=== PATIENT | female | born 1935 | race African-American/Black ===

== ENCOUNTER 2016-10-15 16:42 | Observation (INO) | payer MEDICARE, OTHER ==
[~2016-10-15] VITALS: Ht 160 cm; Wt 45.4 kg
[2016-10-15 17:21] LABS: HEMOGLOBIN 9.4 gm/dl (12.3-15.3); RED BLOOD COUNT 3.54 M/UL (4.00-5.10); WHITE BLOOD COUNT 7.7 K/UL (4.5-11.0)
[2016-10-16 07:02] LABS: HEMOGLOBIN 9.2 gm/dl (12.3-15.3); RED BLOOD COUNT 3.48 M/UL (4.00-5.10); WHITE BLOOD COUNT 6.7 K/UL (4.5-11.0)
[2016-10-16] MEDS ORDERED: HYDROCHLOROTH12.5 M1 PO (10:37)
[2016-10-16] MEDS ORDERED: LIPITOR TAB 2020 MG PO (10:37)
[2016-10-16] MEDS ORDERED: TOPROL XL25 MG PO (10:39)
[2016-10-16] MEDS ORDERED: THEO-DUR 300 M300 MG PO (10:39)
[2016-10-17 05:12] LABS: ACINETOBACTER BAUMANNII Not Detected (Negative); CANDIDA ALBICANS Not Detected (Negative); CANDIDA KRUSEI Not Detected (Negative); CANDIDA TROPICALIS Not Detected (Negative); ENTEROCOCCUS Not Detected (Negative); ESCHERICHIA COLI Not Detected (Negative); HAEMOPHILUS INFLUENZAE Not Detected (Negative); KLEBSIELLA OXYTOCA Not Detected (Negative); KLEBSIELLA PNEUMONIAE Not Detected (Negative); KPC-CARBAPENEM-RESISTANCE GENE Not Detected (Negative); PROTEUS Not Detected (Negative); PSEUDOMONAS AERUGINOSA Not Detected (Negative); SERRATIA MARCESANS Not Detected (Negative); STAPHYLOCOCCUS AUREUS Not Detected (Negative); STREP AGALACTIAE (GROUP B) Not Detected (Negative); STREP PYOGENES (GROUP A) Not Detected (Negative); STREPTOCOCCUS Not Detected (Negative); mecA (METHICILLIN RESIST GENE Not Detected (Negative); vanA/B (VANCOMYCIN RESIST GENE Not Detected (Negative)
[2016-10-17 05:55] LABS: STAPHYLOCOCCUS DETECTED (Negative)
[2016-10-17] MEDS ORDERED: LEVAQUIN500 MG PO (15:07)
[2016-10-17] MEDS ORDERED: AZITHROMYCIN250 MG PO (15:08)
[2016-10-17] MEDS ORDERED: DULERA 100 MCG8.8 GM INH (15:08)
[2016-10-17] MEDS ORDERED: FERROUS SULFAT325 MG PO (15:09)
[2016-10-17] MEDS ORDERED: MECLIZINE HCL25 MG PO (15:10)
[2016-10-17] MEDS ORDERED: PROVENTIL HFA 61 INH INH (15:11)
[2016-10-17] MEDS ORDERED: MEDROL4 MG PO (15:20)
== END 2016-10-17 13:05 | disposition left against medical advice (07) ==
LOC: ER1 16:42 → ZEROF 18:43 → MED SURG 4 18:43
PROVIDERS: Emergency Medicine; ADMIT Emergency Medicine
DX: J20.9 Acute bronchitis, unspecified (principal); J18.9 Pneumonia, unspecified organism; D50.9 Iron deficiency anemia, unspecified; E78.5 Hyperlipidemia, unspecified; E87.6 Hypokalemia; I11.9 Hypertensive heart disease without heart failure; J45.909 Unspecified asthma, uncomplicated; H81.10 Benign paroxysmal vertigo, unspecified ear; M10.9 Gout, unspecified; R26.9 Unspecified abnormalities of gait and mobility; I25.10 Atherosclerotic heart disease of native coronary artery without angina pectoris; E07.9 Disorder of thyroid, unspecified; Z95.1 Presence of aortocoronary bypass graft; Z86.711 Personal history of pulmonary embolism; Z79.899 Other long term (current) drug therapy
CPT/HCPCS: 36415; 70450; 71020; 80053; 82607; 82728; 82746; 83540; 83550; 83735; 84132; 84466; 84484; 85025; 87040; 87077; 87150; 87186; 93005; 94664; 96374; 97116; 97535; 99285; G0378; J0360; J0696; J1650; J1956; J7030; J7050; J7509

== ENCOUNTER 2020-09-27 17:11 | Emergency (ER) | payer MEDICARE, OTHER ==
[~2020-09-27 17:11] MED LIST: ANORO ELLIPTA1 EACH INH; ASPIRIN EC81 MG PO; ATORVASTATIN CA20 MG PO; AZITHROMYCIN250 MG PO; COLACE100 MG PO; DULERA 100 MCG8.8 GM INH; FEOSOL325 MG PO; FEROSUL325 MG PO; FERROUS SULFAT325 MG PO; FLAGYL500 MG PO; HYDRALAZINE HCL10 MG PO; HYDRALAZINE HCL25 MG PO; HYDRALAZINE HCL50 MG PO; HYDROCHLOROTH12.5 M1 PO; LEVAQUIN500 MG PO; LEVAQUIN750 MG PO; LIPITOR TAB 2020 MG PO; LOPRESSOR 25 MG25 MG PO; MECLIZINE HCL25 MG PO; MEDROL4 MG PO; NORVASC 5 MG TAB5 MG PO; OMNICEF 300 MG300 MG PO; PANTOPRAZOLE SO40 MG PO; PROVENTIL HFA 61 INH INH; SYNTHROID 50 M50 MCG PO; THEO-DUR 300 M300 MG PO; TOPROL XL25 MG PO; TYLENOL 325MG325 MG PO; VITAMIN D250000 UNIT PO; ZOFRAN ODT 4 MG4 MG SL
[2020-09-27 18:57] LABS: HEMOGLOBIN 11.2 gm/dl (12.3-15.3); RED BLOOD COUNT 3.81 M/UL (4.00-5.10); WHITE BLOOD COUNT 7.7 K/UL (4.5-11.0)
[2020-09-27 19:18] LABS: BUN/CREATININE RATIO 20 (0-10)
[2020-09-27] MEDS ORDERED: CEFPODOXIME PR200 MG PO (22:06)
[2020-09-27] MEDS ORDERED: STOOL SOFT50 MG/5 ML PO (22:06)
== END 2020-09-27 22:51 | disposition home or self-care (01) ==
LOC: ER1 17:11
PROVIDERS: Student in an Organized Health Care Education/Training Program
DX: N39.0 Urinary tract infection, site not specified (principal); K59.00 Constipation, unspecified; N20.0 Calculus of kidney; I12.9 Hypertensive chronic kidney disease with stage 1 through stage 4 chronic kidney disease, or unspecified chronic kidney disease; E11.22 Type 2 diabetes mellitus with diabetic chronic kidney disease; N18.9 Chronic kidney disease, unspecified; Z95.1 Presence of aortocoronary bypass graft; Z79.82 Long term (current) use of aspirin; Z79.84 Long term (current) use of oral hypoglycemic drugs; Z79.899 Other long term (current) drug therapy
CPT/HCPCS: 71045; 80053; 81001; 82550; 82553; 83605; 83690; 83735; 83874; 84100; 84484; 85025; 93005; 96374; 99285; J0696

== ENCOUNTER 2020-09-30 17:23 | Inpatient (IN) | payer MEDICARE, OTHER ==
[~2020-09-30] VITALS: Ht 157.5 cm; Wt 40.8 kg
[~2020-09-30 17:23] MED LIST changes: +CEFPODOXIME PR200 MG PO; +STOOL SOFT50 MG/5 ML PO
[2020-09-30 18:03] LABS: HEMOGLOBIN 10.8 gm/dl (12.3-15.3); RED BLOOD COUNT 3.69 M/UL (4.00-5.10); WHITE BLOOD COUNT 5.8 K/UL (4.5-11.0)
[2020-10-01] MEDS ORDERED: ASPIRIN EC81 MG PO (13:08)
[2020-10-01] MEDS ORDERED: ATORVASTATIN CA40 MG PO (13:08)
[2020-10-01] MEDS ORDERED: HYDRALAZINE HCL25 MG PO (13:09)
[2020-10-01] MEDS ORDERED: DOCUSATE SODIU100 MG PO (13:09)
[2020-10-01] MEDS ORDERED: METOPROLOL TART25 MG PO (13:10)
[2020-10-01] MEDS ORDERED: PROTONIX40 MG PO (13:10)
[2020-10-01] MEDS ORDERED: FERROUS SULFAT325 MG PO (13:11)
[2020-10-02 05:49] LABS: HEMOGLOBIN 12.1 gm/dl (12.3-15.3); WHITE BLOOD COUNT 5.7 K/UL (4.5-11.0)
[2020-10-02 05:50] LABS: RED BLOOD COUNT 4.13 M/UL (4.00-5.10)
[2020-10-04 02:57] LABS: HEMOGLOBIN 11.2 gm/dl (12.3-15.3); RED BLOOD COUNT 3.94 M/UL (4.00-5.10); WHITE BLOOD COUNT 6.2 K/UL (4.5-11.0)
[2020-10-04] MEDS ORDERED: OMNICEF 300 MG300 MG PO (08:49)
== END 2020-10-04 17:10 | disposition home or self-care (01) | DRG 689 ==
LOC: ER1 17:23 → CDU 22:10 → M/S 22:10 → CDU 22:10 → M/S 10-01 00:10
PROVIDERS: Family Medicine; Physician Assistant Medical; ADMIT Internal Medicine
DX: N30.00 Acute cystitis without hematuria (principal); E43 Unspecified severe protein-calorie malnutrition; Z68.1 Body mass index [BMI] 19.9 or less, adult; R64 Cachexia; G93.40 Encephalopathy, unspecified; R62.7 Adult failure to thrive; I25.10 Atherosclerotic heart disease of native coronary artery without angina pectoris; N18.30 Chronic kidney disease, stage 3 unspecified; D53.9 Nutritional anemia, unspecified; I65.21 Occlusion and stenosis of right carotid artery; D50.9 Iron deficiency anemia, unspecified; I11.9 Hypertensive heart disease without heart failure; E78.5 Hyperlipidemia, unspecified; E03.9 Hypothyroidism, unspecified; B88.8 Other specified infestations; Z20.822 Contact with and (suspected) exposure to COVID-19; Z95.1 Presence of aortocoronary bypass graft; Z86.711 Personal history of pulmonary embolism; Z91.14 Patient's other noncompliance with medication regimen; Z79.01 Long term (current) use of anticoagulants; Z90.710 Acquired absence of both cervix and uterus; Z83.3 Family history of diabetes mellitus; Z82.49 Family history of ischemic heart disease and other diseases of the circulatory system
CPT/HCPCS: 36415; 80048; 80053; 81001; 82550; 82553; 83605; 83690; 83735; 84439; 84443; 84484; 85025; 85027; 86140; 87040; 87086; 96374; 97162; 99285; G0378; J0696; J1650; U0002

== ENCOUNTER 2020-10-18 13:24 | Emergency (ER) | payer MEDICARE, OTHER ==
[~2020-10-18 13:24] MED LIST changes: +ATORVASTATIN CA40 MG PO; +DOCUSATE SODIU100 MG PO; +METOPROLOL TART25 MG PO; +PROTONIX40 MG PO
[2020-10-18 14:48] LABS: HEMOGLOBIN 11.4 gm/dl (12.3-15.3); RED BLOOD COUNT 3.84 M/UL (4.00-5.10); WHITE BLOOD COUNT 6.4 K/UL (4.5-11.0)
[2020-10-18 15:19] LABS: BUN/CREATININE RATIO 17 (0-10)
[2020-10-18] MEDS ORDERED: CEPHALEXIN500 MG PO (17:58)
== END 2020-10-18 18:40 | disposition home or self-care (01) ==
LOC: ER1 13:24
PROVIDERS: Student in an Organized Health Care Education/Training Program
DX: N39.0 Urinary tract infection, site not specified (principal); K59.00 Constipation, unspecified; K57.30 Diverticulosis of large intestine without perforation or abscess without bleeding; I12.9 Hypertensive chronic kidney disease with stage 1 through stage 4 chronic kidney disease, or unspecified chronic kidney disease; N18.9 Chronic kidney disease, unspecified; Z95.1 Presence of aortocoronary bypass graft; Z90.710 Acquired absence of both cervix and uterus
CPT/HCPCS: 80053; 81001; 82550; 82553; 83605; 83690; 83874; 83880; 84484; 85025; 85610; 85652; 85730; 86140; 93005; 96365; 99284; J0696

== ENCOUNTER 2020-11-18 13:11 | Inpatient (IN) | payer MEDICARE, OTHER ==
[~2020-11-18] VITALS: Ht 157.5 cm; Wt 39.9 kg
[~2020-11-18 13:11] MED LIST changes: +CEPHALEXIN500 MG PO
[2020-11-18 14:36] LABS: HEMOGLOBIN 13.4 gm/dl (12.3-15.3); RED BLOOD COUNT 4.8 M/UL (4.00-5.10); WHITE BLOOD COUNT 13.5 K/UL (4.5-11.0)
[2020-11-19 04:30] LABS: HEMOGLOBIN 12.6 gm/dl (12.3-15.3); RED BLOOD COUNT 4.61 M/UL (4.00-5.10); WHITE BLOOD COUNT 10.4 K/UL (4.5-11.0)
--- NOTE | 2020-11-19 06:03 | NUR ---
@[id number],[phone] UNABLE TO CONTACT PATIENT FABIOLA POND TO VERIFY ANY HOME MEDICATIONS OR PAST MEDICAL HISTORY OF PATIENT AT PHONE NUMBER LISTED WITH PATIENT REGISTRATION.
[2020-11-20 06:15] LABS: HEMOGLOBIN 12.6 gm/dl (12.3-15.3); RED BLOOD COUNT 4.33 M/UL (4.00-5.10); WHITE BLOOD COUNT 11.8 K/UL (4.5-11.0)
--- NOTE | 2020-11-21 11:12 | NUR ---
RN SPOKE WITH PATIENT'S SISTER IN LAW AFTER A FAILED ATTEMPT TO REACH SON SALBADOR. SISTER IN LAW STATED THAT SHE WOULD ATTEMPT TO GET IN CONTACT WITH SALBADOR IN REGARDS TO POSSIBLE DISCHARGE TODAY. RN INFORMED ELECTRODYNAMICIST ROXANA AND DR. BOWLES. BOTH INSTRUCTED RN TO ATTEMPT AGAIN LATER IF NO CALL BACKS ARE RECEIVED.
--- NOTE | 2020-11-21 11:29 | NUR ---
SPOKE WITH PATIENT'S BROTHER WHO STATED HE HAD CONTACTED PATIENT'S SON SALBADOR AND THAT HE WOULD BE COMING TO THE HOSPITAL LATER TODAY. DR. BOWLES MADE AWARE.
[2020-11-21 21:04] LABS: HEMOGLOBIN 11.6 gm/dl (12.3-15.3); WHITE BLOOD COUNT 11.7 K/UL (4.5-11.0)
[2020-11-22 03:23] LABS: HEMOGLOBIN 12.2 gm/dl (12.3-15.3); RED BLOOD COUNT 4.24 M/UL (4.00-5.10); WHITE BLOOD COUNT 10.2 K/UL (4.5-11.0)
[2020-11-22] MEDS ORDERED: AUGMENTIN 875-1 EACH PO (11:51)
[2020-11-22] MEDS ORDERED: POLYETHYLENE GL17 GM PO (11:52)
[2020-11-22] MEDS ORDERED: DOCUSATE SODIU100 MG PO (11:52)
[2020-11-22] MEDS ORDERED: ZYVOX600 MG PO (12:16)
--- NOTE | 2020-11-22 16:25 | NUR ---
CASE MANAGMENT ROXANA SAID PATIENT DID NOT QUALIFY FOR HOME HEALTH.
== END 2020-11-22 15:34 | disposition home or self-care (01) | DRG 177 ==
LOC: ER1 13:11 → CDU 17:57 → MED SURG 4 17:57
PROVIDERS: Emergency Medicine; Internal Medicine; ADMIT Hospitalist
DX: J15.212 Pneumonia due to Methicillin resistant Staphylococcus aureus (principal); E43 Unspecified severe protein-calorie malnutrition; N17.9 Acute kidney failure, unspecified; E87.2 Acidosis; Z68.1 Body mass index [BMI] 19.9 or less, adult; N30.90 Cystitis, unspecified without hematuria; B95.7 Other staphylococcus as the cause of diseases classified elsewhere; N18.30 Chronic kidney disease, stage 3 unspecified; I12.9 Hypertensive chronic kidney disease with stage 1 through stage 4 chronic kidney disease, or unspecified chronic kidney disease; E86.0 Dehydration; R62.7 Adult failure to thrive; I25.10 Atherosclerotic heart disease of native coronary artery without angina pectoris; D50.8 Other iron deficiency anemias; I65.21 Occlusion and stenosis of right carotid artery; E03.9 Hypothyroidism, unspecified; Z20.822 Contact with and (suspected) exposure to COVID-19; E78.5 Hyperlipidemia, unspecified; B88.8 Other specified infestations; Z66 Do not resuscitate; L89.322 Pressure ulcer of left buttock, stage 2; Z95.1 Presence of aortocoronary bypass graft; Z86.73 Personal history of transient ischemic attack (TIA), and cerebral infarction without residual deficits; Z90.710 Acquired absence of both cervix and uterus; Z86.711 Personal history of pulmonary embolism; Z91.14 Patient's other noncompliance with medication regimen
CPT/HCPCS: 0240U; 36415; 51702; 70450; 71045; 80048; 80053; 81001; 82550; 82553; 83605; 83690; 83735; 83874; 84439; 84443; 84484; 85025; 85027; 87040; 87070; 87077; 87086; 87186; 87205; 92610; 93005; 96374; 97110-GP-CQ; 97162; 97166; 97530-GP-CQ; 99285; J0696; J1335; J1650; J2405; J2550

== ENCOUNTER 2020-12-03 14:54 | Inpatient (IN) | payer OTHER ==
[~2020-12-03] VITALS: Ht 160 cm; Wt 31.8 kg
[~2020-12-03 14:54] MED LIST changes: +AUGMENTIN 875-1 EACH PO; +POLYETHYLENE GL17 GM PO; +ZYVOX600 MG PO
[2020-12-03 15:45] LABS: HEMOGLOBIN 12.2 gm/dl (12.3-15.3); RED BLOOD COUNT 4.24 M/UL (4.00-5.10); WHITE BLOOD COUNT 18.5 K/UL (4.5-11.0)
--- NOTE | 2020-12-03 20:00 | NUR ---
PT IS UNABLE TO PROVIDE ADMISSION INFORMATION, WELL HER HOME MEDICATION LIST. PT IS ALSO UNABLE TO CONFIRM MEDICATIONS LISTED PREVIOUSLY. I ATTEMPTED TO CALL MARIBELL MEEKS (PT'S EMERGENCY CONTACT). HOWEVER, THAT PHONE NUMBER HAD BEEN DISCONNECTED. I ATTEMPTED TO CALL ANGELITA POND (PT'S SON). HOWEVER, THAT PHONE NUMBER KEPT GOING TO VOICEMAIL. I WAS UNABLE TO CONTACT ANYONE ON BEHALF OF OBED POND. I USED TO REVIEW PT'S MEDICATIONS. THE MOST CURRENT MEDICATIONS WERE LAST FILLED ON 10/05/20.
[2020-12-04 05:47] LABS: RED BLOOD COUNT 4.25 M/UL (4.00-5.10)
[2020-12-04 05:55] LABS: WHITE BLOOD COUNT 11.1 K/UL (4.5-11.0)
[2020-12-04 06:18] LABS: BUN/CREATININE RATIO 29 (0-10)
[2020-12-05 04:41] LABS: HEMOGLOBIN 10.8 gm/dl (12.3-15.3); WHITE BLOOD COUNT 11.3 K/UL (4.5-11.0)
[2020-12-05 04:53] LABS: RED BLOOD COUNT 3.78 M/UL (4.00-5.10)
[2020-12-06 04:25] LABS: RED BLOOD COUNT 3.59 M/UL (4.00-5.10); WHITE BLOOD COUNT 10.2 K/UL (4.5-11.0)
--- NOTE | 2020-12-06 14:17 | NUR ---
DR. BARTH NOTIFIED REGUARDING PATIENT BRADYING IN 30'S. LOPRESSOR DOSE CHANGED TO 12.5MG BID.
[2020-12-09 08:13] LABS: HEMOGLOBIN 9.1 gm/dl (12.3-15.3); RED BLOOD COUNT 3.31 M/UL (4.00-5.10); WHITE BLOOD COUNT 12.6 K/UL (4.5-11.0)
[2020-12-09 08:30] LABS: BUN/CREATININE RATIO 25 (0-10)
--- NOTE | 2020-12-09 10:13 | NUR ---
DR BARTH NOTIFIED OF POTASSIUM 2.9 AND PT BEING NAUSEATED AND SOA. PORTABLE CHEST XRAY ORDERED
[2020-12-09 19:35] LABS: HEMOGLOBIN 9.3 gm/dl (12.3-15.3)
[2020-12-10 01:24] LABS: HEMOGLOBIN 9.4 gm/dl (12.3-15.3)
--- NOTE | 2020-12-10 03:15 | NUR ---
APPROX. 0208: PCT (REBEKAH) WAS IN PT'S ROOM DOING ROUTINE VITAL SIGNS. PCT CALLED ME AND TOLD ME TO COME TO PT'S ROOM. PT'S O2 SATURATION WAS READING 70% ON 2L NC. I BUMPED PT'S O2 SATURATION TO 5L NC. PT'S O2 CAME UP TO 83%. I CALLED RESPIRATORY TO COME TO PT'S ROOM. APPROX. 0210: I PLACED PT ON NONREBREATHER MASK @ 10L. PT'S O2 SATURATION CAME UP TO 85%. RESPIRATORY ARRIVED TO PT'S ROOM. APPROX. 0214: INCREASED PT'S O2 TO NONREBREATHER MASK @ 15L. PT'S O2 SATURATION CAME UP TO 93%. APPROX. 0216: PT'S O2 IS 100% ON NONREBREATHER MASK @ 15L. APPROX. 0218: B/P: 99/44, O2: 98%, HR: 65, TEMPERATURE WAS NOT PICKING UP ORALLY OR AXILLARY. APPROX. 0223: TEMPERATURE WAS OBTAINED VIA TYMPANIC AND IT WAS 87.9 DEGREES FARENHEIT. APPROX. 0226: RECTAL TEMP 88.7 DEGREES FARENHEIT. APPROX. 0227: I CALLED AN DENTAL TECHNICIAN INSTRUCTOR ON PT. PT WAS NOT ACTING RIGHT. PT'S EYES WERE ROLLING BACK INTO HER HEAD. PT WAS NOT RESPONDING TO VOICE. PT VERY LETHARGIC. PT STRUGGLING TO BREATHE. PT WAS A TOTAL CHANGE FROM PREV. ASSESSMENTS THROUGHOUT THE NIGHT. APPROX. 0228: B/P: 87/57 (MAP:60), HR: 64, O2: 92% ON 5L NC. RESPIRATORY DECREASED PT'S O2. APPROX. 0230: DENTAL TECHNICIAN INSTRUCTOR TEAM ARRIVE ALONG WITH AND SATELLITE INSTALLATION TECHNICIAN. APPROX. 0234: STARTED BOLUS OF NS. STATED TO PUT PT ON ZUNILDA HUGGER AND SEND TO ICU. APPROX. 0236: ORDERED STAT ABG. APPROX. 0237: PT'S GLUCOSE 167. APPROX. 0238: B/P: 88/47, HR: 63, O2: 87% ON 5L NC. ABG RESULTED CRITICAL. PT'S FAMILY WAS CALLED TO OBTAIN CODE STATUS ON PT. UNABLE TO REACH FAMILY AND EMERGENCY CONTACTS LISTED. ORDERED STAY EKG, CARDIAC ENZYMES, STAT CHEST X-RAY, PLACE PT ON BIPAP. PT'S BP WAS 98/56 WITH BOLUS OF NS GOING. ALSO STATED TO PLACE PT ON ZUNILDA HUGGER. APPROX. 0244: PT WAS TRANSFERRED TO ICU. ROOM 2130.
[2020-12-10 03:55] LABS: BUN/CREATININE RATIO 26 (0-10)
[2020-12-10 06:43] LABS: HEMOGLOBIN 9.1 gm/dl (12.3-15.3)
[2020-12-10 10:27] LABS: CAMPYLOBACTER Not Detected (Negative); CLOSTRIDIUM DIFFICILE TOX A/B Not Detected (Negative); ENTEROAGGREGATIVE E.COLI (EAEC Not Detected (Negative); ENTEROPATHOGENIC E.COLI (EPEC) Not Detected (Negative); PLESIOMONAS SHIGELLOIDES Not Detected (Negative); SALMONELLA Not Detected (Negative); VIBRIO Not Detected (Negative); VIBRIO CHOLERAE Not Detected (Negative); YERSINIA ENTEROCOLITICA Not Detected (Negative)
[2020-12-10 10:28] LABS: ADENOVIRUS F 40/41 Not Detected (Negative); ASTROVIRUS Not Detected (Negative); CRYPTOSPORIDIUM Not Detected (Negative); E.COLI 0157 Not Detected (Negative); ENTAMOEBA HISTOLYTICA Not Detected (Negative); ENTEROTOXIGENIC E.COLI (ETEC) Not Detected (Negative); GIARDIA LAMBLIA Not Detected (Negative); NOROVIRUS GI/GII Not Detected (Negative); ROTOVIRUS A Not Detected (Negative); SAPOVIRUS Not Detected (Negative); SHIG/ENTEROINVAS.ECOLI (EIEC) Not Detected (Negative); SHIGA-LIK TOX.PRO.E.COLI (STEC Not Detected (Negative)
[2020-12-10 12:40] LABS: HEMOGLOBIN 8.3 gm/dl (12.3-15.3)
[2020-12-10 14:10] LABS: RED BLOOD COUNT 2.05 M/UL (4.00-5.10); WHITE BLOOD COUNT 18.3 K/UL (4.5-11.0)
[2020-12-10 14:13] LABS: HEMOGLOBIN 5.8 gm/dl (12.3-15.3)
--- NOTE | 2020-12-10 16:55 | NUR ---
1430 Dr Lerma notified of critial hgb of 5.8 Dr. Lerma ordered 3 units of prbc's. [id number] Multiple attempts made to son (aidee) and brother (issa) to obtain consent for blood. Left voicemail on sons cell explaining the need for consent. No returned phone call. Unable to obtain consent from patient due to patient being confused. Explained to patient that she needed a blood transfusion and asked her if she wanted blood. Patient nodded head yes but was able to verbalize if she wanted the transfusion. Attempted to remove bipap so that patient could speak and pt was unable to talk. Kathrin Nunez RN at bedside to verify blood. No orthodoxy noted on face sheet or in database 1. Dr lerma notified and transfusion started at 1525. continued to try and reach family after infusion was started but still unable to reach any family member.
[2020-12-11 00:56] LABS: RED BLOOD COUNT 4.54 M/UL (4.00-5.10); WHITE BLOOD COUNT 13.9 K/UL (4.5-11.0)
[2020-12-11 00:57] LABS: HEMOGLOBIN 12.5 gm/dl (12.3-15.3)
[2020-12-11 05:10] LABS: HEMOGLOBIN 12.5 gm/dl (12.3-15.3); RED BLOOD COUNT 4.58 M/UL (4.00-5.10); WHITE BLOOD COUNT 13.7 K/UL (4.5-11.0)
== END 2020-12-12 03:20 | disposition expired | DRG 871 ==
LOC: ER1 14:54 → MED SURG 4 17:32 → CDU 17:32 → MED SURG 4 18:55 → CCU 12-10 02:44
PROVIDERS: Emergency Medicine; Internal Medicine; Physician Assistant; Physician Assistant Medical; ADMIT Internal Medicine
PROC: 05HM33Z Insertion of Infusion Device into Right Internal Jugular Vein, Percutaneous Approach (ICD-10-PCS; principal; 2020-12-10)
PROC: B543ZZA Ultrasonography of Right Jugular Veins, Guidance (ICD-10-PCS; 2020-12-10)
DX: A41.9 Sepsis, unspecified organism (principal); E43 Unspecified severe protein-calorie malnutrition; J18.9 Pneumonia, unspecified organism; J96.01 Acute respiratory failure with hypoxia; J96.02 Acute respiratory failure with hypercapnia; G93.41 Metabolic encephalopathy; R65.21 Severe sepsis with septic shock; N39.0 Urinary tract infection, site not specified; E87.2 Acidosis; Z68.1 Body mass index [BMI] 19.9 or less, adult; Z20.822 Contact with and (suspected) exposure to COVID-19; I25.10 Atherosclerotic heart disease of native coronary artery without angina pectoris; D50.9 Iron deficiency anemia, unspecified; N18.30 Chronic kidney disease, stage 3 unspecified; I12.9 Hypertensive chronic kidney disease with stage 1 through stage 4 chronic kidney disease, or unspecified chronic kidney disease; R00.1 Bradycardia, unspecified; E86.0 Dehydration; R54 Age-related physical debility; R62.7 Adult failure to thrive; L89.312 Pressure ulcer of right buttock, stage 2; E87.6 Hypokalemia; E78.5 Hyperlipidemia, unspecified; E03.9 Hypothyroidism, unspecified; Z86.711 Personal history of pulmonary embolism; Z59.0 Homelessness; Z86.73 Personal history of transient ischemic attack (TIA), and cerebral infarction without residual deficits; Z95.1 Presence of aortocoronary bypass graft; Z82.49 Family history of ischemic heart disease and other diseases of the circulatory system; Z83.3 Family history of diabetes mellitus
CPT/HCPCS: 36415; 36430; 36600; 51702; 71045; 80048; 80053; 80202; 81001; 82140; 82272; 82550; 82553; 82803; 82962; 83605; 83690; 83735; 83874; 83880; 84100; 84132; 84439; 84443; 84484; 85014; 85018; 85025; 85027; 85610; 85730; 86850; 86900; 86901; 86920; 87040; 87086; 87507; 93005; 94660; 94760; 96374; 97110-GP-CQ; 97161; 97530-GP-CQ; 99285; A6212; C9113; J1650; J2185; J2405; J2543; J3370; J7030; J7040; J7070; P9016; P9047; U0002